=== PATIENT | female | born 1970 | race Caucasian/White ===

== ENCOUNTER 2024-07-12 13:02 | Emergency (ER) | payer OTHER ==
[~2024-07-12] VITALS: Ht 152.4 cm; Wt 56.8 kg
[2024-07-12 13:14] VITALS: TEMP 97.9
[2024-07-12 14:01] LABS: APPEARANCE,URINE CLEAR (CLEAR); BILIRUBIN,URINE NEGATIVE (NEGATIVE); COLOR,URINE COLORLESS (YELLOW); GLUCOSE, URINE (UA) NEGATIVE (NEGATIVE); KETONES,URINE NEGATIVE (NEGATIVE); LEUKOCYTE ESTERASE ,URINE LARGE (NEGATIVE); NITRATE,URINE NEGATIVE (NEGATIVE); OCCULT BLOOD,URINE NEGATIVE (NEGATIVE); PROTEIN,URINE NEGATIVE (NEGATIVE); SPECIFIC GRAVITIY, URINE 1.003 (1.003-1.030); UROBILINOGEN,URINE <=1.0 mg/dL (<=1.0)
[2024-07-12 14:02] LABS: BASOPHILS % (AUTO) 0.2 % (0.0-2.0); EOSINOPHILS % (AUTO) 0.4 % (1.0-6.0); HEMATOCRIT 47.2 % (36-46); HEMOGLOBIN 15.6 g/dL (12.0-16.0); LYMPHOCYTES # (AUTO) 1.4 K/uL (1.0-4.8); LYMPHOCYTES % (AUTO) 16.6 % (22.0-44.0); MEAN CORPUSCULAR HEMOGLOBIN 32.3 pg (26.0-34.0); MEAN CORPUSCULAR HGB CONC 33.1 G/dL (31.0-37.0); MEAN CORPUSCULAR VOLUME 98 fL (80-100); MONOCYTES # (AUTO) 0.6 K/uL (0.1-1.0); MONOCYTES % (AUTO) 6.5 % (2.0-9.0); NEUTROPHILS # (AUTO) 6.6 K/uL (1.8-7.7); NEUTROPHILS % (AUTO) 76.3 % (40.0-70.0); PLATELET COUNT (AUTO) 247 K/uL (150-450); RED BLOOD CELL COUNT(AUTO) 4.82 MIL/uL (4.00-5.20); RED CELL DISTRIBUTION WIDTH 13.5 % (11.5-14.5); WHITE BLOOD COUNT (AUTO) 8.7 K/uL (4.5-11.0)
[2024-07-12 14:10] LABS: ALCOHOL, URINE DRUG SCREEN NEGATIVE (NEGATIVE); AMPHET/METH SCREEN,URINE NEGATIVE (NEGATIVE); BARBITURATE SCREEN, URINE NEGATIVE (NEGATIVE); BENZODIAZEPINES SCREEN,URINE NEGATIVE (NEGATIVE); CANNABINOID SCREEN,URINE NEGATIVE (NEGATIVE); COCAINE SCREEN,URINE NEGATIVE (NEGATIVE); METHADONE SCREEN, URINE NEGATIVE (NEGATIVE); OPIATE SCREEN,URINE NEGATIVE (NEGATIVE); PHENCYCLIDINE SCREEN,URINE NEGATIVE (NEGATIVE)
[2024-07-12 14:11] LABS: ANION GAP 7 mmol/L (8-16); CALCIUM, TOTAL 9.4 mg/dL (8.8-10.5); CARBON DIOXIDE 28 mmol/L (22-29); CHLORIDE 102 mmol/L (98-107); CREATININE 0.51 mg/dL (0.60-1.30); GLOMERULAR FILTR. RATE CALC > 60 mL/min (>60); GLUCOSE,RANDOM 90 mg/dL (70-110); POTASSIUM 4.1 mmol/L (3.5-5.1); SODIUM SERUM 137 mmol/L (136-145); UREA NITROGEN, BLOOD 16 mg/dL (7-18)
[2024-07-12 14:19] LABS: RBC,URINE None Seen /HPF (0-2)
[2024-07-12 14:20] LABS: BACTERIA,URINE None Seen /HPF (None Seen); SQUAMOUS EPITHELIAL CELL,UR Few /LPF (None Seen)
[2024-07-12 14:26] LABS: ALCOHOL, BLOOD (SERUM) < 3 mg/dL (0-10)
[2024-07-12] MEDS: CEPHALEXIN MONOHYDRATE 500 MG CAPSULE PO ONE (19:06)
[2024-07-12 19:35] VITALS: BP 120/93; PULSE 90; RESP 18; O2SAT 98
[2024-07-12] MEDS ORDERED: CEPH-558 PO (20:02)
== END 2024-07-12 20:25 | disposition home or self-care (01) ==
LOC: EMS 13:02
DX: N39.0 Urinary tract infection, site not specified (principal); F41.9 Anxiety disorder, unspecified; Z86.74 Personal history of sudden cardiac arrest
CPT/HCPCS: 99283; 80048; 85025; 87086; 36415; 80307; 81001; G0480

== ENCOUNTER 2024-07-17 17:38 | Inpatient (IN) | payer MEDICAID, OTHER ==
[~2024-07-17] VITALS: Ht 154.9 cm; Wt 51.3 kg
[~2024-07-17 17:38] MED LIST: CEPH-558 PO
[2024-07-17] MEDS ORDERED: SERT25TA PO (17:50)
[2024-07-17] MEDS ORDERED: TRAZ-252 PO (17:50)
[2024-07-17 18:11] LABS: BASOPHILS % (AUTO) 0.2 % (0.0-2.0); EOSINOPHILS % (AUTO) 0.2 % (1.0-6.0); HEMATOCRIT 43.9 % (36-46); HEMOGLOBIN 14.6 g/dL (12.0-16.0); LYMPHOCYTES % (AUTO) 14.7 % (22.0-44.0); MEAN CORPUSCULAR HEMOGLOBIN 32.3 pg (26.0-34.0); MEAN CORPUSCULAR HGB CONC 33.3 G/dL (31.0-37.0); MEAN CORPUSCULAR VOLUME 97 fL (80-100); MONOCYTES # (AUTO) 0.4 K/uL (0.1-1.0); MONOCYTES % (AUTO) 5.2 % (2.0-9.0); NEUTROPHILS # (AUTO) 5.5 K/uL (1.8-7.7); NEUTROPHILS % (AUTO) 79.7 % (40.0-70.0); PLATELET COUNT (AUTO) 220 K/uL (150-450); RED BLOOD CELL COUNT(AUTO) 4.53 MIL/uL (4.00-5.20); RED CELL DISTRIBUTION WIDTH 13.2 % (11.5-14.5); WHITE BLOOD COUNT (AUTO) 6.8 K/uL (4.5-11.0)
[2024-07-17 18:33] LABS: ALBUMIN 3.5 g/dL (3.4-5.0); BILIRUBIN,DIRECT 0.1 mg/dL (0.00-0.20); BILIRUBIN,TOTAL 0.4 mg/dL (0.1-1.0); TOTAL PROTEIN, SERUM 6.8 g/dL (6.4-8.2)
[2024-07-17 18:37] LABS: LACTIC ACID 1.2 mmol/L (0.4-2.0)
[2024-07-17 18:51] LABS: ALCOHOL, BLOOD (SERUM) < 3 mg/dL (0-10)
[2024-07-17 18:56] LABS: ANION GAP 9 mmol/L (8-16); CARBON DIOXIDE 26 mmol/L (22-29); CHLORIDE 101 mmol/L (98-107); CREATININE 0.57 mg/dL (0.60-1.30); GLOMERULAR FILTR. RATE CALC > 60 mL/min (>60); GLUCOSE,RANDOM 109 mg/dL (70-110); POTASSIUM 3.7 mmol/L (3.5-5.1); SODIUM SERUM 136 mmol/L (136-145); UREA NITROGEN, BLOOD 14 mg/dL (7-18)
[2024-07-17] MEDS: LORazepam 2 MG/ML VIAL IVP ONE (19:00)
[2024-07-17 19:06] LABS: CREATINE KINASE, TOTAL ONLY 118 U/L (26-192); TROPONIN I-HIGH SENSITIVITY 5 ng/L (<51)
[2024-07-17] MEDS ORDERED: HALOPERIDOL 5 MG TABLET PO PRN (21:30)
[2024-07-17 21:49] LABS: COVID AG,FIA SOURCE NASAL SWAB
[2024-07-17 22:10] LABS: SARS-COV2 (COVID) ANTIGEN,FIA Negative (Negative)
[2024-07-18 00:46] LABS: AMPHET/METH SCREEN,URINE NEGATIVE (NEGATIVE); BARBITURATE SCREEN, URINE NEGATIVE (NEGATIVE); BENZODIAZEPINES SCREEN,URINE NEGATIVE (NEGATIVE); CANNABINOID SCREEN,URINE NEGATIVE (NEGATIVE); COCAINE SCREEN,URINE NEGATIVE (NEGATIVE); METHADONE SCREEN, URINE NEGATIVE (NEGATIVE); OPIATE SCREEN,URINE NEGATIVE (NEGATIVE); PHENCYCLIDINE SCREEN,URINE NEGATIVE (NEGATIVE)
[2024-07-18 00:50] LABS: ALCOHOL, URINE DRUG SCREEN NEGATIVE (NEGATIVE)
[2024-07-18 02:04] VITALS: O2SAT 99
[2024-07-18 03:44] VITALS: BP 127/88; PULSE 87; RESP 18; TEMP 97; O2SAT 98
[2024-07-18] MEDS ORDERED: PNEUMOCOCCAL VACCINE POLYVALENT 0.5 ML SYRINGE [PPSV23] IM. ONE (04:30)
[2024-07-18 08:06] VITALS: BP 132/81; PULSE 98; RESP 18; TEMP 98.8; O2SAT 96
[2024-07-18] MEDS ORDERED: CloNIDine HCL 0.1 MG TABLET PO PRN (14:15)
[2024-07-18] MEDS ORDERED: DOCUSATE SODIUM 100 MG CAPSULE PO PRN (14:15)
[2024-07-18] MEDS ORDERED: BENZOCAINE/MENTHOL [CEPACOL] LOZENGE PO PRN (14:15)
[2024-07-18] MEDS ORDERED: PETROLATUM,WHITE 28 GM JELLY TP PRN (14:15)
[2024-07-18] MEDS ORDERED: MAG HYDROX/ALUMINUM HYD/SIMETH ES 30 ML SUSPENSION UDCUP PO PRN (14:15)
[2024-07-18] MEDS ORDERED: IBUPROFEN 600 MG TABLET PO PRN (14:15)
[2024-07-18] MEDS ORDERED: BACITRACIN 28 GM OINTMENT TP PRN (14:15)
[2024-07-18] MEDS ORDERED: ALBUTEROL SULFATE HFA 90 MCG/PUFF 8 GM INHALER IH PRN (14:15)
[2024-07-18] MEDS ORDERED: ACETAMINOPHEN 325 MG TABLET PO PRN (14:15)
[2024-07-18] MEDS ORDERED: MAGNESIUM HYDROXIDE SUSPENSION 30 ML UDCUP PO PRN (14:15)
[2024-07-18] MEDS ORDERED: OMEPRAZOLE 20 MG CAPSULE PO PRN (14:15)
[2024-07-18] MEDS ORDERED: ONDANSETRON 4 MG TABLET PO PRN (14:15)
[2024-07-18] MEDS ORDERED: LOPERAMIDE HCL 2 MG CAPSULE PO PRN (14:15)
[2024-07-18] MEDS: ZOLPIDEM TARTRATE 10 MG TABLET PO PRN (20:06)
[2024-07-18 20:45] VITALS: BP_SYST 121; BP_SYST 145; BP_DIAS 67; BP_DIAS 79; PULSE 70; PULSE 94; RESP 16; TEMP 98.5; O2SAT 100
[2024-07-19 08:07] VITALS: BP 120/81; PULSE 83; RESP 17; TEMP 97.2; O2SAT 96
[2024-07-19 08:28] LABS: APPEARANCE,URINE HAZY (CLEAR); BILIRUBIN,URINE NEGATIVE (NEGATIVE); COLOR,URINE LIGHT YELLOW (YELLOW); GLUCOSE, URINE (UA) NEGATIVE (NEGATIVE); KETONES,URINE NEGATIVE (NEGATIVE); LEUKOCYTE ESTERASE ,URINE LARGE (NEGATIVE); NITRATE,URINE NEGATIVE (NEGATIVE); OCCULT BLOOD,URINE TRACE (NEGATIVE); PH,URINE 5.5 (5.0-8.0); PROTEIN,URINE NEGATIVE (NEGATIVE); SPECIFIC GRAVITIY, URINE 1.008 (1.003-1.030); UROBILINOGEN,URINE <=1.0 mg/dL (<=1.0)
[2024-07-19 08:48] LABS: BACTERIA,URINE Many /HPF (None Seen); RBC,URINE 0-2 /HPF (0-2); SQUAMOUS EPITHELIAL CELL,UR Many /LPF (None Seen); WBC,URINE 51-100 /HPF (0-5)
[2024-07-19] MEDS: CEFUROXIME AXETIL 250 MG TABLET PO SCH (16:19)
[2024-07-19 20:00] VITALS: BP 130/85; PULSE 90; RESP 17; TEMP 98.1; O2SAT 97
[2024-07-20 13:17] VITALS: BP 149/91; PULSE 77; RESP 15; TEMP 97.5; O2SAT 96
[2024-07-20] MEDS: LORazepam 2 MG TABLET PO PRN (16:40)
[2024-07-20 20:05] VITALS: BP 127/83; PULSE 90; RESP 17; TEMP 97.5; O2SAT 99
[2024-07-21 00:07] LABS: HEPATITIS C AB (EIA) Non Reactive (Non Reactive)
[2024-07-21 08:19] VITALS: BP 123/67; PULSE 98; RESP 18; TEMP 98.2; O2SAT 95
[2024-07-21] MEDS ORDERED: SERT-158 PO (15:00)
[2024-07-22] MEDS ORDERED: SERTRALINE HCL 50 MG TABLET PO SCH (09:00)
== END 2024-07-21 19:09 | disposition home or self-care (01) | DRG 754 ==
LOC: EMS 17:38 → B2S 07-18 01:24
PROVIDERS: ADMIT Psychiatry & Neurology Psychiatry; ATTEND Psychiatry & Neurology Psychiatry
DX: F32.9 Major depressive disorder, single episode, unspecified (principal); F06.1 Catatonic disorder due to known physiological condition; Z86.74 Personal history of sudden cardiac arrest; E78.00 Pure hypercholesterolemia, unspecified; F20.9 Schizophrenia, unspecified; F41.9 Anxiety disorder, unspecified; Z20.822 Contact with and (suspected) exposure to COVID-19; G47.00 Insomnia, unspecified; I10 Essential (primary) hypertension; K21.9 Gastro-esophageal reflux disease without esophagitis; R53.1 Weakness; M13.88 Other specified arthritis, other site
CPT/HCPCS: 70450; 71045; 80048; 80076; 80307; 81001; 82140; 82550; 83605; 84484; 85025; 86803; 87086; 87340; 93005; 96374; 99285; G0480; J2060; 36415-L1; 36415-TC

== ENCOUNTER 2024-08-11 11:44 | Emergency (ER) | payer MEDICAID, OTHER ==
[~2024-08-11] VITALS: Ht 154.9 cm; Wt 59.0 kg
[~2024-08-11 11:44] MED LIST changes: -CEPH-558 PO; +SERT-158 PO
[2024-08-11 12:04] VITALS: BP 142/79; PULSE 88; RESP 20; TEMP 97.9; O2SAT 96
[2024-08-11 16:00] LABS: BASOPHILS % (AUTO) 0.6 % (0.0-2.0); EOSINOPHILS % (AUTO) 0.3 % (1.0-6.0); HEMATOCRIT 43.7 % (36-46); LYMPHOCYTES # (AUTO) 1.3 K/uL (1.0-4.8); LYMPHOCYTES % (AUTO) 20.7 % (22.0-44.0); MEAN CORPUSCULAR HEMOGLOBIN 32.2 pg (26.0-34.0); MEAN CORPUSCULAR HGB CONC 34.3 G/dL (31.0-37.0); MEAN CORPUSCULAR VOLUME 94 fL (80-100); MONOCYTES # (AUTO) 0.4 K/uL (0.1-1.0); MONOCYTES % (AUTO) 5.9 % (2.0-9.0); NEUTROPHILS # (AUTO) 4.7 K/uL (1.8-7.7); NEUTROPHILS % (AUTO) 72.5 % (40.0-70.0); PLATELET COUNT (AUTO) 228 K/uL (150-450); RED BLOOD CELL COUNT(AUTO) 4.64 MIL/uL (4.00-5.20); RED CELL DISTRIBUTION WIDTH 13.2 % (11.5-14.5); WHITE BLOOD COUNT (AUTO) 6.5 K/uL (4.5-11.0)
[2024-08-11 16:06] LABS: ANION GAP 10 mmol/L (8-16); CALCIUM, TOTAL 8.9 mg/dL (8.8-10.5); CARBON DIOXIDE 27 mmol/L (22-29); CHLORIDE 103 mmol/L (98-107); CREATININE 0.56 mg/dL (0.60-1.30); GLOMERULAR FILTR. RATE CALC > 60 mL/min (>60); GLUCOSE,RANDOM 89 mg/dL (70-110); POTASSIUM 3.4 mmol/L (3.5-5.1); SODIUM SERUM 140 mmol/L (136-145); UREA NITROGEN, BLOOD 9 mg/dL (7-18)
[2024-08-11 16:40] LABS: APPEARANCE,URINE HAZY (CLEAR); BILIRUBIN,URINE NEGATIVE (NEGATIVE); COLOR,URINE LIGHT YELLOW (YELLOW); GLUCOSE, URINE (UA) NEGATIVE (NEGATIVE); LEUKOCYTE ESTERASE ,URINE LARGE (NEGATIVE); NITRATE,URINE NEGATIVE (NEGATIVE); OCCULT BLOOD,URINE NEGATIVE (NEGATIVE); PROTEIN,URINE TRACE mg/dL (NEGATIVE); SPECIFIC GRAVITIY, URINE 1.013 (1.003-1.030); UROBILINOGEN,URINE <=1.0 mg/dL (<=1.0)
[2024-08-11 16:58] LABS: ALCOHOL, URINE DRUG SCREEN NEGATIVE (NEGATIVE); AMPHET/METH SCREEN,URINE NEGATIVE (NEGATIVE); BARBITURATE SCREEN, URINE NEGATIVE (NEGATIVE); BENZODIAZEPINES SCREEN,URINE NEGATIVE (NEGATIVE); CANNABINOID SCREEN,URINE NEGATIVE (NEGATIVE); COCAINE SCREEN,URINE NEGATIVE (NEGATIVE); METHADONE SCREEN, URINE NEGATIVE (NEGATIVE); OPIATE SCREEN,URINE NEGATIVE (NEGATIVE); PHENCYCLIDINE SCREEN,URINE NEGATIVE (NEGATIVE)
[2024-08-11 17:12] LABS: BACTERIA,URINE Few /HPF (None Seen); RBC,URINE None Seen /HPF (0-2); SQUAMOUS EPITHELIAL CELL,UR Few /LPF (None Seen)
== END 2024-08-11 16:39 | disposition left against medical advice (07) ==
LOC: EMS 11:46
DX: F32.9 Major depressive disorder, single episode, unspecified (principal); E78.00 Pure hypercholesterolemia, unspecified; F41.9 Anxiety disorder, unspecified; F32.A Depression, unspecified; Z87.440 Personal history of urinary (tract) infections; Z86.74 Personal history of sudden cardiac arrest; Z79.899 Other long term (current) drug therapy; Z98.890 Other specified postprocedural states
CPT/HCPCS: 99283; 80048; 85025; 87086; 36415; 80307; 81001; G0480

== ENCOUNTER 2024-09-04 10:50 | Inpatient (IN) | payer MEDICAID, OTHER ==
[~2024-09-04] VITALS: Ht 149.9 cm; Wt 46.9 kg
[2024-09-04] MEDS ORDERED: haloperidoL 5 MG TABLET PO PRN (11:15)
[2024-09-04] MEDS ORDERED: TRAZ-252 PO (11:30)
[2024-09-04] MEDS ORDERED: CEFP200T12 PO (11:30)
[2024-09-04] MEDS ORDERED: HYDR-4808 PO (11:30)
[2024-09-04 11:35] LABS: BASOPHILS % (AUTO) 0.1 % (0.0-2.0); EOSINOPHILS % (AUTO) 0.3 % (1.0-6.0); HEMATOCRIT 47.3 % (36-46); HEMOGLOBIN 15.8 g/dL (12.0-16.0); LYMPHOCYTES # (AUTO) 1.3 K/uL (1.0-4.8); MEAN CORPUSCULAR HEMOGLOBIN 31.4 pg (26.0-34.0); MEAN CORPUSCULAR HGB CONC 33.4 G/dL (31.0-37.0); MEAN CORPUSCULAR VOLUME 94 fL (80-100); MONOCYTES # (AUTO) 0.3 K/uL (0.1-1.0); MONOCYTES % (AUTO) 4.7 % (2.0-9.0); NEUTROPHILS # (AUTO) 4.9 K/uL (1.8-7.7); NEUTROPHILS % (AUTO) 74.9 % (40.0-70.0); PLATELET COUNT (AUTO) 203 K/uL (150-450); RED BLOOD CELL COUNT(AUTO) 5.03 MIL/uL (4.00-5.20); RED CELL DISTRIBUTION WIDTH 12.9 % (11.5-14.5); WHITE BLOOD COUNT (AUTO) 6.6 K/uL (4.5-11.0)
[2024-09-04 11:47] LABS: ANION GAP 7 mmol/L (8-16); CARBON DIOXIDE 25 mmol/L (22-29); CHLORIDE 104 mmol/L (98-107); GLOMERULAR FILTR. RATE CALC > 60 mL/min (>60); GLUCOSE,RANDOM 90 mg/dL (70-110); POTASSIUM 3.7 mmol/L (3.5-5.1); SODIUM SERUM 136 mmol/L (136-145); UREA NITROGEN, BLOOD 10 mg/dL (7-18)
[2024-09-04 12:11] LABS: COVID AG,FIA SOURCE NASAL SWAB
[2024-09-04 12:35] LABS: SARS-COV2 (COVID) ANTIGEN,FIA Negative (Negative)
[2024-09-04 12:45] LABS: APPEARANCE,URINE CLEAR (CLEAR); BILIRUBIN,URINE NEGATIVE (NEGATIVE); COLOR,URINE LIGHT YELLOW (YELLOW); GLUCOSE, URINE (UA) NEGATIVE (NEGATIVE); LEUKOCYTE ESTERASE ,URINE TRACE (NEGATIVE); NITRATE,URINE NEGATIVE (NEGATIVE); OCCULT BLOOD,URINE NEGATIVE (NEGATIVE); PH,URINE 6.5 (5.0-8.0); PH,URINE DRUG SCREEN 6.5 (5.0-8.0); PROTEIN,URINE TRACE mg/dL (NEGATIVE); SPECIFIC GRAVITIY, URINE 1.016 (1.003-1.030); UROBILINOGEN,URINE <=1.0 mg/dL (<=1.0)
[2024-09-04 12:51] LABS: BACTERIA,URINE None Seen /HPF (None Seen); RBC,URINE None Seen /HPF (0-2); SQUAMOUS EPITHELIAL CELL,UR Few /LPF (None Seen); WBC,URINE 0-2 /HPF (0-5)
[2024-09-04 13:15] LABS: ALCOHOL, URINE DRUG SCREEN NEGATIVE (NEGATIVE); AMPHET/METH SCREEN,URINE NEGATIVE (NEGATIVE); BARBITURATE SCREEN, URINE NEGATIVE (NEGATIVE); BENZODIAZEPINES SCREEN,URINE NEGATIVE (NEGATIVE); CANNABINOID SCREEN,URINE NEGATIVE (NEGATIVE); COCAINE SCREEN,URINE NEGATIVE (NEGATIVE); METHADONE SCREEN, URINE NEGATIVE (NEGATIVE); OPIATE SCREEN,URINE NEGATIVE (NEGATIVE); PHENCYCLIDINE SCREEN,URINE NEGATIVE (NEGATIVE)
[2024-09-04 13:59] LABS: ALBUMIN 3.8 g/dL (3.4-5.0); BILIRUBIN,DIRECT 0.1 mg/dL (0.00-0.20); BILIRUBIN,TOTAL 0.6 mg/dL (0.1-1.0); TOTAL PROTEIN, SERUM 6.9 g/dL (6.4-8.2)
[2024-09-04] MEDS: haloperidoL LACTATE 5 MG/ML VIAL IM ONE (16:02)
[2024-09-04] MEDS: LORazepam 2 MG/ML VIAL IM ONE (16:03)
[2024-09-04 16:26] VITALS: O2SAT 98
[2024-09-04 18:51] VITALS: BP 144/120; PULSE 85; RESP 18; TEMP 97.7; O2SAT 99
[2024-09-04 19:02] VITALS: BP 115/82; PULSE 92; RESP 16; TEMP 97.5; O2SAT 99
[2024-09-04 20:17] VITALS: BP 116/69; PULSE 96; RESP 17; TEMP 98.1; O2SAT 97
[2024-09-04 20:18] VITALS: BP 115/82; PULSE 92; RESP 16; TEMP 97.5; O2SAT 100
[2024-09-05] MEDS: CEFPODOXIME PROXETIL 200 MG TABLET PO SCH (09:00)
[2024-09-05] MEDS: ATORVASTATIN CALCIUM 20 MG TABLET PO SCH (09:00)
[2024-09-05 10:11] VITALS: BP 132/84; PULSE 98; RESP 18; TEMP 97.2; O2SAT 98
[2024-09-05] MEDS ORDERED: LOPERAMIDE HCL 2 MG CAPSULE PO PRN (16:30)
[2024-09-05] MEDS ORDERED: MAGNESIUM HYDROXIDE SUSPENSION 30 ML UDCUP PO PRN (16:30)
[2024-09-05] MEDS ORDERED: IBUPROFEN 600 MG TABLET PO PRN (16:30)
[2024-09-05] MEDS ORDERED: OMEPRAZOLE 20 MG CAPSULE PO PRN (16:30)
[2024-09-05] MEDS ORDERED: CloNIDine HCL 0.1 MG TABLET PO PRN (16:30)
[2024-09-05] MEDS ORDERED: BENZOCAINE/MENTHOL [CEPACOL] LOZENGE PO PRN (16:30)
[2024-09-05] MEDS ORDERED: BACITRACIN 28 GM OINTMENT TP PRN (16:30)
[2024-09-05] MEDS ORDERED: PETROLATUM,WHITE 28 GM JELLY TP PRN (16:30)
[2024-09-05] MEDS ORDERED: ONDANSETRON 4 MG TABLET PO PRN (16:30)
[2024-09-05] MEDS ORDERED: DOCUSATE SODIUM 100 MG CAPSULE PO PRN (16:30)
[2024-09-05] MEDS ORDERED: ALBUTEROL SULFATE HFA 90 MCG/PUFF 8 GM INHALER IH PRN (16:30)
[2024-09-05] MEDS ORDERED: ACETAMINOPHEN 325 MG TABLET PO PRN (16:30)
[2024-09-05] MEDS ORDERED: MAG HYDROX/ALUMINUM HYD/SIMETH ES 30 ML SUSPENSION UDCUP PO PRN (16:30)
[2024-09-06] MEDS: RisperiDONE 0.5 MG TABLET PO SCH (09:00)
[2024-09-06 09:22] VITALS: BP 109/74; PULSE 99; RESP 16; TEMP 97.2; O2SAT 98
[2024-09-06] MEDS: MIRTAZAPINE 15 MG TABLET PO SCH (22:31)
[2024-09-06 22:54] VITALS: BP 105/75; PULSE 79; RESP 18; TEMP 98.1; O2SAT 97
[2024-09-07 11:08] VITALS: BP 130/80; PULSE 80; RESP 17; TEMP 98; O2SAT 98
[2024-09-07 21:27] VITALS: BP 117/83; PULSE 100; TEMP 97.9; O2SAT 96
[2024-09-08 12:45] VITALS: BP 117/84; PULSE 96; RESP 17; TEMP 97.7; O2SAT 97
[2024-09-08 21:54] VITALS: BP 118/78; PULSE 98; RESP 16; O2SAT 98
[2024-09-08] MEDS: ZOLPIDEM TARTRATE 10 MG TABLET PO PRN (21:55)
[2024-09-09 23:50] VITALS: RESP 18
[2024-09-10 09:07] VITALS: RESP 18
[2024-09-10 20:00] VITALS: BP 108/78; PULSE 89; RESP 18; O2SAT 99
[2024-09-11 07:40] LABS: HEMOGLOBIN A1C 5.6 % (3.8-5.6)
[2024-09-11 08:00] LABS: CHOL/HDL RATIO 2.7 (3.9-5.7); THYROID STIMULATING HORMONE 5.86 uIU/mL (0.36-3.74)
[2024-09-11] MEDS: LORazepam 2 MG TABLET PO PRN (10:13)
[2024-09-11 11:03] VITALS: BP 111/78; PULSE 78; RESP 16; TEMP 97.8; O2SAT 98
[2024-09-11 20:33] VITALS: BP 90/62; PULSE 94; RESP 18; TEMP 97.1; O2SAT 98
[2024-09-12 11:06] VITALS: RESP 18
[2024-09-12 23:17] VITALS: BP 100/69; PULSE 98; RESP 18; TEMP 97.8; O2SAT 97
[2024-09-13 13:58] VITALS: BP 119/97; PULSE 78; RESP 18; TEMP 97.5; O2SAT 97
[2024-09-13 21:57] VITALS: BP 115/78; PULSE 82; RESP 18; TEMP 97.6; O2SAT 98
[2024-09-14 09:11] VITALS: BP 124/68; PULSE 84; RESP 17; TEMP 97.4; O2SAT 100
[2024-09-14 22:23] VITALS: BP 111/82; PULSE 92; RESP 17; TEMP 98.2; O2SAT 98
[2024-09-15 08:30] VITALS: BP 106/72; PULSE 76; RESP 17; TEMP 98; O2SAT 98
[2024-09-15] MEDS ORDERED: ATOR20TA PO (09:18)
[2024-09-15] MEDS ORDERED: MIRT-89 PO (09:19)
[2024-09-15] MEDS ORDERED: RISP0.5T80 PO (09:19)
== END 2024-09-15 13:10 | disposition home or self-care (01) | DRG 750 ==
LOC: EMS 10:56 → B2S 13:24 → 3EI 09-05 14:44
PROVIDERS: ADMIT Psychiatry & Neurology Psychiatry; ATTEND Psychiatry & Neurology Psychiatry
DX: F20.9 Schizophrenia, unspecified (principal); Z86.74 Personal history of sudden cardiac arrest; E78.00 Pure hypercholesterolemia, unspecified; F03.94 Unspecified dementia, unspecified severity, with anxiety; F32.A Depression, unspecified; N39.0 Urinary tract infection, site not specified; K21.9 Gastro-esophageal reflux disease without esophagitis; Z20.822 Contact with and (suspected) exposure to COVID-19; G47.00 Insomnia, unspecified; I10 Essential (primary) hypertension; R13.10 Dysphagia, unspecified; Z79.2 Long term (current) use of antibiotics; Z79.899 Other long term (current) drug therapy
CPT/HCPCS: 70551; 80048; 80061; 80076; 80307; 81001; 83036; 83690; 84443; 85025; 92526; 92610; 96372; 97116; 97162; 97165; 97530; 99285; G0480; J1630; J2060